=== PATIENT | female | born 2000 | race Two or more races ===

== ENCOUNTER 2025-02-14 12:43 | Outpatient (REF) | payer BC, SELFPAY ==
--- OUTSIDE RECORDS SUMMARY | 2023-11-28 06:00 | XMS_ITS ---
Author Organization [facility] vices Address [address] [place], [place] [id number] Care Team Providers Care Teamsite Developer Name Role Phone GironNell hernández Unavailable [phone] REASON FOR VISIT Depression & Referral Social History Sex Assigned At : Social History Observation Description Sex Assigned At Female Encounters Encounter Location Date Provider Diagnosis Main [address] [place], [place] [id number] 11/28/2023 Nell Giron Plan Of Treatment No Information Progress Notes * Karlee AGUDELO DDOB:[birth year] (25 yo F)Acc No.[id number]:11/28/2023 Medical Note Patient: Karlee ANN Provider: Nila Giron MD :2000 A ge:23 Y S ex:Female Date:11/28/2023 Address:[facility] [address] Subjective: * Chief Complaints: * 1 . Depression & Referral. * Medical History: Objective: * Vitals: Assessment: Plan: * Treatment: * Billing Information: * Visit Code: * Procedure Codes: * Electronic signature of Daniel Giron MD on 02/14/2025 at 08:16 AM EDT Sign off status: Pending * Provider: Nila Giron MD Date: 0 11/28/2023 Generated for Printi ng/Fapatti/eTransmitting on: 0 02/14/2025 08:16 AM EDT
--- OUTSIDE RECORDS SUMMARY | 2025-02-14 08:30 | XMS_ITS | Encounter Summary ---
Author Organization [facility] Address [address] [place] [address] Care Team Providers Care Engineering Specialist Technician Name Role Phone Unavailable Primary Care Provider Unavailabl e Reason for Visit * Reason Comments Gynecologic Exam Encounter Details Date Type Department Care Team (Late st Contact Info) Description 02/14/2025 8:30 AM EDT Office Visit [facility] [address] [place] [address] Dez Shea DO [address] [place], [place] [id number] Well woman exam with routine gynecological exam; Hx of endometriosis; Hx of removal of cyst; PCOS (polycystic ovarian syndrome) Social History Tobacco Use Types Packs/Day Years Used Date Smoking Tobacco: Never Assessed Comments No Sex and Gender Information Value Date Recorded Sex Assigned at Not on file Legal Sex Female 7:03 PM EDT Gender Identity Not on file Sexual Orientation Not on file documented as of this encounter Last Filed Vital Signs Vital Sign Reading Time Taken Comments Blood Pressure 118/74 02/14/2025 8:31 AM EDT Pulse - - Temperature - - Respiratory Rate - - Oxygen Saturation - - Inhaled Oxygen Concentration - - Weight 80.7 kg (178 lb) 02/14/2025 8:31 AM EDT Height 160 cm (5' 3 ) 02/14/2025 8:31 AM EDT Body Mass Index 31.53 02/14/2025 8:31 AM EDT documented in this encounter Progress Notes * Thais Corrales MA - 02/14/2025 8:30 AM EDT Reason for Appointment: Patient ID: Karlee Agudelo is a 25 y.o. female who presents for Gynecologic Exam Patient presents today for Annual Exam. MEDICATIONS No current outpatient medications ALLERGIES No Known Allergies PROBLEMS Active Ambulatory Problems Diagnosis Date Noted No Active Ambulatory Problems Resolved Ambulatory Problems Diagnosis Date Noted No Resolved Ambulatory Problems No Additional Past Medical History HISTORY PAST MEDICAL HISTORY SOCIAL HISTORY No past medical history on file. Social History Tobacco Use Smoking status: Not on file Smokeless tobacco: Not on file Substance Use Topics Alcohol use: Not on file Drug use: Not on file FAMILY HISTORY No family history on file. SURGICAL HISTORY Past Surgical History: Procedure Laterality Date CYST REMOVAL 2016 REVIEW OF SYSTEMS Review of Systems: Review of Systems Constitutional: Negative. HENT: Negative. Eyes: Negative. Respiratory: Negative. Cardiovascular: Negative. Gastrointestinal: Negative. Genitourinary: Negative. Musculoskeletal: Negative. Skin: Negative. Neurological: Negative. All other systems reviewed and are negative. Hematological: Negative. Endocrine: Negative. Allergic/Immunologic: Negative. OBJECTIVE Objective: Physical Exam Constitutional: Appearance: Normal appearance. She is well-developed. Genitourinary: Vulva normal. Right Adnexa: not tender and no mass present. Left Adnexa: not tender and no mass present. No cervical discharge. Breasts: Breasts are soft. Right: Normal. Left: Normal. HENT: Head: Normocephalic. Nose: Nose normal. Mouth/Throat: Mouth: Mucous membranes are moist. Cardiovascular: Rate and Rhythm: Normal rate and regular rhythm. Pulmonary: Effort: Pulmonary effort is normal. Breath sounds: Normal breath sounds. Abdominal: General: Bowel sounds are normal. There is no distension. Palpations: Abdomen is soft. Tenderness: There is no abdominal tenderness. There is no guarding or rebound. Musculoskeletal: General: No swelling. Normal range of motion. Cervical back: Normal range of motion. Right lower leg: No edema. Left lower leg: No edema. Neurological: General: No focal deficit present. Mental Status: She is alert and oriented to person, place, and time. Skin: General: Skin is warm and dry. Psychiatric: Mood and Affect: Mood normal. Behavior: Behavior normal. Vitals and nursing note reviewed. Exam conducted with a keyboarding clerk present. Vitals: Estimated body mass index is 31.53 kg/m?? as calculated from the following: Height as of this encounter: 5' 3 . Weight as of this encounter: 178 lb. BP: 118/74 Patient's last menstrual period was 01/28/2025 (exact date). ASSESSMENT & PLAN ICD-10-CM 1. Well woman exam with routine gynecological exam Z01.419 Pap Smear 2. Hx of endometriosis Z87.42 3. Hx of removal of cyst Z98.890 4. PCOS (polycystic ovarian syndrome) E28.2 hCG, quantitative, TSH T4, free CBC and differential Follicle stimulating hormone Luteinizing hormone Hemoglobin A1c DHEA-sulfate DHEA US Pelvis w/ TV DHEA Annual Exam: Patient presents today for an annual exam. Patient states she is doing well and has no complaints. Pap was obtained without difficulty. Patient discussed her menstrual cycles are over 8 days w/heavy bleeding. PCOS labs and US was given to patient to obtain and schedule a f/up visit. Pt is also desiring to discuss fertility and has been on Femara in the past w/her last OB doctor. Jen Steward gave patient information about fertility medication and was advised to set up a fertility visit to see Dr. Shea. PVU. Labs for pcos and ultrasound ordered and follow up with Monse discussed Orders Placed This Encounter Procedures US Pelvis w/ TV hCG, quantitative, TSH T4, free CBC and differential Follicle stimulating hormone Luteinizing hormone Hemoglobin A1c DHEA-sulfate DHEA Follow Up: Patient is to return in one year for annual unless needed otherwise. Documented by Thais Corrales MA on behalf of: Dez Shea DO documented in this encounter Plan of Treatment Upcoming Encounters Date Type Department Care Team (Late st Contact Info) Description 02/25/2025 1:00 PM EDT Ancillary Procedure [facility] [address] [place] [address] 03/12/2025 9:50 AM EDT [place] [address] Dez Shea, DO [address] [place] [address] [place] [address] Scheduled Orders Name Type Priority Associated Diagnoses Orde r Schedule Pap Smear Pathology and Cytology Routine Well woman exam with routine gynecological exam Ordered: 02/14/2025 hCG, quantitative, Lab Routine PCOS (polycystic ovarian syndrome) Ordered: 02/14/2025 TSH Lab Routine PCOS (polycystic ovarian syndrome) Ordered: 02/14/2025 T4, free Lab Routine PCOS (polycystic ovarian syndrome) Ordered: 02/14/2025 CBC and differential Lab Routine PCOS (polycystic ovarian syndrome) Ordered: 02/14/2025 Follicle stimulating hormone Lab Routine PCOS (polycystic ovarian syndrome) Ordered: 02/14/2025 Luteinizing hormone Lab Routine PCOS (polycystic ovarian syndrome) Ordered: 02/14/2025 Hemoglobin A1c Lab Routine PCOS (polycystic ovarian syndrome) Ordered: 02/14/2025 DHEA-sulfate Lab Routine PCOS (polycystic ovarian syndrome) Ordered: 02/14/2025 DHEA Lab Routine PCOS (polycystic ovarian syndrome) Expected: 02/14/2025 (Approximate), Expires: 02/14/2026 US Pelvis w/ TV Imaging Routine PCOS (polycystic ovarian syndrome) Expected: 02/14/2025 (Approximate), Expires: 02/14/2026 documented as of this encounter Visit Diagnoses Diagnosis Well woman exam with routine gynecological exam Routine gynecological examination Hx of endometriosis Hx of removal of cyst PCOS (polycystic ovarian syndrome) Polycystic ovaries documented in this encounter
--- OUTSIDE RECORDS SUMMARY | 2025-02-14 12:49 | XMS_ITS | Encounter Summary ---
Author Organization [facility] Address [address] [place] [address] Care Team Providers Care Orderlies Teacher Name Role Phone Unavailable Primary Care Provider Unavailabl e Encounter Details Date Type Department Care Team (Late Contact Info) Description 02/14/2025 Telephone [facility] [address] [place] [address] Thais Corrales MA [address] [place] [address] Social History Tobacco Use Types Packs/Day Years Used Date Smoking Tobacco: Never Assessed Comments No Sex and Gender Information Value Date Recorded Sex Assigned at Not on file Legal Sex Female 7:03 PM EDT Gender Identity Not on file Sexual Orientation Not on file documented as of this encounter Miscellaneous Notes * Telephone Encounter - Thais Corrales MA - 02/14/2025 10:28 AM EDT Per elin chu to send in metformin for pcos documented in this encounter Plan of Treatment Upcoming Encounters Date Type Department Care Team (Late Contact Info) Description 02/25/2025 1:00 PM EDT Ancillary Procedure [facility] [address] [place] [address] 03/12/2025 9:50 AM EDT Office Visit [facility] [address] [facility] [place] [address] Dez Shea DO [address] [facility] [place] [address] documented as of this encounter Visit Diagnoses Diagnosis PCOS (polycystic ovarian syndrome) Polycystic ovaries documented in this encounter
--- OUTSIDE RECORDS SUMMARY | 2025-02-14 12:49 | XMS_ITS | Clinical Summary ---
Author Organization [facility] Address [address] [place] [address] Care Team Providers Care Gas Treater Name Role Phone Unavailable Primary Care Provider Unavailabl e Allergies No known active allergies Medications metFORMIN XR (Glucophage-XR) 500 MG 24 hr tabletIndication s:PCOS (polycystic ovarian syndrome) Take 1 tablet (500 mg) by mouth in the evening. Take with meals Do not crush, chew, or split. 90 tablet 2 02/14/2025 Active Encounters Date Type Department Care Team Description 02/14/2025 8:30 AM EDT Office Visit [facility] [address] [place] [address] [place] [address] Dez Shea DO Well woman exam with routine gynecological exam; Hx of endometriosis; Hx of removal of cyst; PCOS (polycystic ovarian syndrome) 02/14/2025 Telephone [facility] [address] [place] [address] [place] [address] Thais Corrales MA 02/14/2025 Bamboo flowsheet [facility] [address] [place] [address] [place] [address] Dez Shea DO 02/07/2025 Travel from Last 3 Months Social History Tobacco Use Types Packs/Day Years Used Date Smoking Tobacco: Never Assessed Comments No Sex and Gender Information Value Date Recorded Sex Assigned at Not on file Legal Sex Female 7:03 PM EDT Gender Identity Not on file Sexual Orientation Not on file Last Filed Vital Signs Vital Sign Reading Time Taken Comments Blood Pressure 118/74 02/14/2025 8:31 AM EDT Pulse - - Temperature - - Respiratory Rate - - Oxygen Saturation - - Inhaled Oxygen Concentration - - Weight 80.7 kg (178 lb) 02/14/2025 8:31 AM EDT Height 160 cm (5' 3 ) 02/14/2025 8:31 AM EDT Body Mass Index 31.53 02/14/2025 8:31 AM EDT Plan of Treatment Upcoming Encounters Date Type Department Care Team (Late st Contact Info) Description 02/25/2025 1:00 PM EDT Ancillary Procedure [facility] [address] [place] [address] 03/12/2025 9:50 AM EDT Office Visit [facility] [address] [place] [address] Dez Shea DO [address] [place] [address] Insurance
--- OUTSIDE RECORDS SUMMARY | 2025-02-14 12:49 | XMS_ITS | Clinical Summary ---
Author Organization [facility] Address [id number] [address] [place] [address] Care Team Providers Care Board Runner Name Role Phone Services, [facility] Primary Care Provider Allergies No known active allergies Medications letrozole (FEMARA) 2.5 mg chemo tabletIndicatio ns:Anovulation Take 2 tablets by mouth daily Take on cycle days 3-7 5 tablet 02/06/2024 Active Active Problems No known active problems Social History Tobacco Use Types Packs/Day Years Used Date Smoking Tobacco: Every Day Vaping/E-cigarettes Smokeless Tobacco: Never Tobacco Cessation:Ready to Q uit: Not Asked; Counseling Given: Not Answered Alcohol Use Standard Drinks/Week Comments Yes 3 (1 standard drink = 0.6 oz pur e alcohol) once a week AUDIT-C Answer Date Recorded Q1: How often do you have a drink containing alc ohol? Never 09/22/2020 Average Number of Drinks Not on file 021 Frequency of Binge Drinking Not on file 09/08 Childcare Answer Date Recorded Childcare Unknown 12/20/2018 Employment Answer Date Recorded Employment Unknown 12/20/2018 Hunger Screening Answer Date Recorded Within the past 12 months we worried whether our food would run out before we got money to buy more. Never True 08/15/2023 Within the past 12 months th e food we bought just didn't last and we didn't have money to get more. Never True 08/15/2023 Purpose - Life Answer Date Recorded Purpose and direction in life Unknown Comments No Sex and Gender Information Value Date Recorded Sex Assigned at Female 07/26/2023 4:39 AM EST Legal Sex Female 12:01 PM EDT Gender Identity Female 07/26/2023 4:39 AM EST Sexual Orientation Straight 07/26/2023 4: 39 AM EST Last Filed Vital Signs Vital Sign Reading Time Taken Comments Blood Pressure 115/74 09/26/2023 10:46 AM EDT Pulse 77 08/15/2023 1:09 PM EST Temperature 36.7 C (98 F) 07/14/2022 6:44 PM EST Respiratory Rate 18 07/14/2022 6:44 PM EST Oxygen Saturation 100% 07/14/2022 6:44 PM EST Inhaled Oxygen Concentration - - Weight 90.9 kg (200 lb 6.4 oz) 08/15/2023 1:09 P M EST Height 160 cm (5' 2.99 ) 08/15/2023 1:09 PM EST Body Mass Index 35.51 08/15/2023 1:09 PM EST Plan of Treatment Health Maintenance Due Date Last Done Comments Tobacco Counseling 2000 Depression Screening 2010 COVID-19 Vaccine (3 2023-2 5 season) 2024 01/17/2021, 12/27/2020 Adult BMI Screening 08/15/2024 08/15/2023 Tobacco Screening 02/15/2025 02/16/2024 Influenza Vaccine 03/11/2025 07/25/2023, 07/20/2022 Pap Smear 09/25/2026 09/26/2023 DTaP,Tdap and Td Vaccines (8 - Td or Tdap) 12/03/2031 12/02/2021, 12/02/2010, 11/19/2002, Additional history exists Medical Devices Not on file Procedures Procedure Name Priority Date/Time Associated Diagnosis Comments PAP SMEAR Routine 09/26/2023 6:35 AM EDT Well woman exam with routine gynecological exam from Last 3 Months or Most Recently Relevant to Health Maintenance Results * Pap Smear (09/26/2023 6:35 AM EDT) 09/26/2023 6:35 AM EDT 09/26/2023 6:35 AM EDT Narrative COPATH - 10/11/2023 9:21 AM EDT [facility] [address] [place] [address] Gynecologic Cytology Consultation Patient Name:KARLEE AGUDELO:2000 (Age: 23)Gender:FTaken:4Reported:10/11/2023hysician(s):Kenya Vasquez M.D. ([phone])Copy To: Rec. #:[id number]: #[id number] Final Cytologic Interpretation ThinPrep Pap Test (Vaginal/Cervical): Satisfactory for evaluation. A transformation zone component is present. NEGATIVE FOR INTRAEPITHELIAL LESION OR MALIGNANCY. jja/10/11/2023 Interpretation performed at [facility], [address] [place] [address], License number: [id number]. Electronically Signed Out By AYAKA Eugene(ASCP) Date of Last Menstrual Period: 09/18/23 Other Clinical Conditions: Z01.419 Youth Services Specialist exam wo/abn findings Source of Specimen ThinPrep Pap Test (Vaginal/Cervical) Thin Prep Pap (SEMICONDUCTOR PROCESSING TECHNICIAN) Fee Code(s): G0145 Kenya Vasquez MD PATHOLOGY/CYTOLOGY ORDERABLES nal Result COPATH from Last 3 Months or Most Recently Relevant to Health Maintenance Insurance [employer] Care Teams Board Runner Relationship Specialty Start Date End Date Services, [facility] [address] [place], [place] PCP - General Family Medicine 04/25/18
--- OUTSIDE RECORDS SUMMARY | 2025-02-14 12:49 | XMS_ITS | Clinical Summary ---
Author Organization [facility] Address [address] [place], [place] [address] Care Team Providers Care Athletic Coach Name Role Phone Dez Shea DO Unavailable [phone] Allergies No known active allergies Medications docusate sodium (COLACE) 100 mg capsule Take 1 capsule by mouth twice daily. 30 capsule 02/13/2017 Active oxyCODONE-aceta minophen (PERCOCET) 5-325 mg tablet Take 2 tablets by mouth every 4 hours as needed. 30 tablet 02/13/2017 Active acetaminophen-c odeine (TYLENOL-COD #3) 300-30 mg per tablet Take 1 tablet by mouth every 6 hours as needed. FOR PAIN 0 01/17/2017 Active Active Problems Problem Noted Date Diagnosed Date Endometrioma of ovary 02/10/2017 Resolved Problems Problem Noted Date Diagnosed Date Resolved Date Pelvic mass 01/31/2017 02/13/2017 Overview (01/31/2017): Added automatically from request for surgery [id number] Family History Medical History Relation Comments no cancer in family Other Relation Status Comments Other Social History Tobacco Use Types Packs/Day Years Used Date Smoking Tobacco: Never Smokeless Tobacco: Never Alcohol Use Standard Drinks/Week Comments No 0 (1 standard drink = 0.6 oz pur e alcohol) Comments No Sex and Gender Information Value Date Recorded Sex Assigned at Not on file Legal Sex Female 10:21 AM EDT Gender Identity Not on file Sexual Orientation Not on file Last Filed Vital Signs Vital Sign Reading Time Taken Comments Blood Pressure 108/68 02/22/2017 2:09 PM EDT Pulse 78 02/22/2017 2:09 PM EDT Temperature 37.1 C (98.8 F) 02/22/2017 2:09 PM EDT Respiratory Rate 16 02/13/2017 8:18 AM EDT Oxygen Saturation 96% 02/13/2017 8:18 AM EDT Inhaled Oxygen Concentration - - Weight 68.9 kg (151 lb 12.8 oz) 02/22/2017 2:09 PM EDT Height 160 cm (5' 2.99 ) 02/22/2017 2:09 PM EDT Body Mass Index 26.9 02/22/2017 2:09 PM EDT Plan of Treatment Health Maintenance Due Date Last Done Comments Anxiety Screening 01/12/2016 Depression Screening 01/12/2016 HIV Screening 01/12/2016 Hepatitis C Screening 01/12/2016 DTaP,Tdap,Td Vaccine (1 - Tdap) 2017 Hepatitis B Vaccine (1 of 3 - 19+ 3-dose series) 01/11 Cervical Cancer Screening 2019 Influenza Vaccine (#1) 2025 Insurance BLUE CARD PPO OOS Member Subscriber Plan / Payer (Ef fective 2011-Present) Name:AgudeloKarlee Relation to Subscriber:Child Name:ZEYNEP AGUDELO Carson Date of :1977 (Home) Address: [address] [place], [place] [address] Payer ID:[id number] (NAIC) Type:PPO Address: [address] [employer] [facility] Care Teams Athletic Coach Relationship Specialty Start Date End Date Dez Shea DO Referring Obstetrics 01/19/17
--- OUTSIDE RECORDS SUMMARY | 2025-02-14 12:49 | XMS_ITS | Encounter Summary ---
Author Organization [facility] Address [id number] [address] [place] [address] Care Team Providers Care Hook Loader Name Role Phone Services, [facility] Primary Care Provider Reason for Visit * Reason Comments Med Change Request Encounter Details Date Type Department Care Team (Late Contact Info) Description 01/25/2024 Refill [facility] [address] [place] [address] Kenya Vasquez MD [address] [place] 02/23/2024 [place] [address] Social History Tobacco Use Types Packs/Day Years Used Date Smoking Tobacco: Every Day Vaping/E-cigarettes Smokeless Tobacco: Never Alcohol Use Standard Drinks/Week Comments Yes 3 [...] Orientation Straight 07/26/2023 4: 39 AM EST documented as of this encounter Miscellaneous Notes * Telephone Encounter - Kenya Vasquez MD - 01/25/2024 3:15 PM EDT duplicate documented in this encounter Plan of Treatment Not on file documented as of this encounter Visit Diagnoses Not on filedocumented in this encounter Care Teams Hook Loader Relationship Specialty Start Date End Date Services, [facility] [address] [place], [place] PCP - General Family Medicine 04/25/18 documented as of this encounter
--- OUTSIDE RECORDS SUMMARY | 2025-02-14 12:49 | XMS_ITS | Encounter Summary ---
Author Organization [facility] Address [address] [place] [address] Care Team Providers Care Ager Operator Name Role Phone Unavailable Primary Care Provider Unavailabl e Encounter Details Date Type Department Care Team (Latest Contact Info) Description 02/07/2025 Travel Social History Tobacco Use Types Packs/Day Years Used Date Smoking Tobacco: Never Assessed Comments Unknown Sex and Gender Information Value Date Recorded Sex Assigned at Not on file Legal Sex Female 7:03 PM EDT Gender Identity Not on file Sexual Orientation Not on file documented as of this encounter Plan of Treatment Upcoming Encounters Date Type Department Care Team (Late st Contact Info) Description 02/25/2025 1:00 PM EDT Ancillary Procedure NOMChristine SAUNDERS [address] [place] [address] 03/12/2025 9:50 AM EDT Office Visit LUIS SAUNDERS [address] [place] [address] Dez Shea DO [address], [facility]11 documented as of this encounter Visit Diagnoses Not on filedocumented in this encounter
--- OUTSIDE RECORDS SUMMARY | 2025-02-14 12:49 | XMS_ITS | Encounter Summary ---
Author Organization [facility] Address [address] [place] [address] Care Team Providers Care Consulting Actuary Name Role Phone Unavailable Primary Care Provider Unavailabl e Encounter Details Date Type Department Care Team (Late Contact Info) Description 02/14/2025 Bamboo flowsheet NOMChristine SAUNDERS [address] [place] [address] Dez Shea, [address], [place] [address] Social History Tobacco Use Types Packs/Day Years [...] PM EDT Ancillary Procedure NOMChristine SAUNDERS [address] [place] [address] 03/12/2025 9:50 AM EDT Office Visit NOMChristine SAUNDERS [address] [place] [address] Dez Shea, DO [address] [place] [address] documented as of this encounter Visit Diagnoses Not on filedocumented in this encounter
[2025-02-16 23:07] LABS: Age Gdln ACOG Testing Note (.); IGP, rfx Aptima HPV ASCU Note (.)
== END 2025-02-14 12:44 | disposition home or self-care (01) ==
LOC: LAB 12:43
PROVIDERS: Visit Provider Obstetrics & Gynecology
DX: Z01.419 Encounter for gynecological examination (general) (routine) without abnormal findings (principal)
CPT/HCPCS: 88175

== ENCOUNTER 2025-02-21 14:06 | Outpatient (OUT) | payer BC, SELFPAY ==
--- OUTSIDE RECORDS SUMMARY | 2023-11-28 06:00 | XMS_ITS ---
Author Organization [facility] vices Address [address] [place], [place] [id number] Care Team Providers Care Gore Cutter Name Role Phone Giron, Nell Unavailable [phone] REASON FOR VISIT Depression & Referral Social History Sex Assigned At : Social History Observation Description Sex Assigned At Female Encounters Encounter Location Date Provider Diagnosis Main [address] [place], [place] [id number] 11/28/2023 Nell Giron Plan Of Treatment No Information Progress Notes * Karlee AGUDELO DDOB:[birth year] (25 yo F)Acc No.[id number]:11/28/2023 Medical Note Patient: Karlee ANN Provider: Nila Giron MD :2000 A ge:23 Y S ex:Female Date:11/28/2023 Address:[facility] [address], [id number] Subjective: * Chief Complaints: * 1 . Depression & Referral. * Medical History: Objective: * Vitals: Assessment: Plan: * Treatment: * Billing Information: * Visit Code: * Procedure Codes: * Electronic signature of Daniel Giron MD on 02/21/2025 at 02:08 PM EDT Sign off status: Pending * Provider: Nila Giron MD Date: 11/28/2023 Generated for Printi coral/Fapatti/eTransmitting on: 02/21/2025 02:08 PM EDT
--- OUTSIDE RECORDS SUMMARY | 2025-02-14 08:30 | XMS_ITS | Encounter Summary ---
Author Organization [facility] Address [address] [place] [address] Care Team Providers Care Plumbing Assembler Installer Name Role Phone Unavailable Primary Care Provider Unavailabl e Reason for Visit * Reason Comments Gynecologic Exam Encounter Details Date Type Department Care Team (Late st Contact Info) Description 02/14/2025 8:30 AM EDT Office Visit [facility] [address] [facility] [place] [phone] Dez Shea DO [address] [place], [place] [phone] Well woman exam with routine gynecological exam; [...] nursing note reviewed. Exam conducted with a master in chancery present. Vitals: Estimated body mass index is [...] Procedure [facility] [address] [place] [address] 03/12/2025 9:50 AM EDT [place] [address] Dez Shea, DO [address] [place] [address] [place] [address] Scheduled Orders Name Type Priority Associated Diagnoses [...]
--- OUTSIDE RECORDS SUMMARY | 2025-02-21 14:07 | XMS_ITS | Encounter Summary ---
Author Organization [facility] Address [address] [place] [address] Care Team Providers Care Senior Maintenance Machinist Name Role Phone Unavailable Primary Care Provider Unavailabl e Encounter Details Date Type Department Care Team (Late Contact Info) Description 02/14/2025 Bamboo flowsheet NOMChristine SAUNDERS [address] [place] [address] Dez Shea, [address], [place] [address] Social History Tobacco Use Types Packs/Day Years [...] Ancillary Procedure NOMChristine SAUNDERS [address] [place] [address] 03/12/2025 9:50 AM EDT Office Visit NOMChristine SAUNDERS [address] [place] [address] Dez Shea, DO [address] [place] [address] documented as of this encounter Visit Diagnoses Not on filedocumented in this encounter
--- OUTSIDE RECORDS SUMMARY | 2025-02-21 14:07 | XMS_ITS | Clinical Summary ---
Author Organization [facility] Address [address] [place], [place] [address] Care Team Providers Care Crew Supervisor Name Role Phone Dez Shea DO Unavailable [phone] Allergies No known active allergies Medications [...] (01/31/2017): Added automatically from request for surgery [id number] Family History Medical History Relation Comments no [...] AGUDELO Carson Date of :1979 (Home) Address: [address] [place], [place] [id number] Payer ID:[id number] (NAIC) Type:PPO Address: [address] [employer] MEDICAID [facility] Care Teams Crew Supervisor Relationship Specialty Start Date End Date Dez Shea DO Referring Obstetrics 01/19/17
--- OUTSIDE RECORDS SUMMARY | 2025-02-21 14:07 | XMS_ITS | Encounter Summary ---
Author Organization [facility] Address [address] [place] [address] Care Team Providers Care Show Jumping Instructor Name Role Phone Unavailable Primary Care Provider Unavailabl e Encounter Details Date Type Department Care Team (Late Contact Info) Description 02/14/2025 Telephone [facility] Marcus SAUNDERS [address] [place] [address] Thais Corrales MA [address] [place] [address] Social History Tobacco Use Types Packs/Day Years [...] EDT Ancillary Procedure NOM[facility] Marcus SAUNDERS [address] [place] [address] 03/12/2025 9:50 AM EDT Office Visit LUIS SAUNDERS [address] [facility] [place] [address] Dez Shea DO [address] [facility] [place] [address] documented as of this encounter Visit Diagnoses Diagnosis PCOS (polycystic ovarian syndrome) Polycystic ovaries documented in this encounter
--- OUTSIDE RECORDS SUMMARY | 2025-02-21 14:07 | XMS_ITS | Clinical Summary ---
Author Organization [facility] Address [address] [facility] [place] [address] Care Team Providers Care Vest Presser Name Role Phone Unavailable Primary Care Provider [...] AM EDT Office Visit [facility] Marcus SAUNDERS [address] [place] [address] Dez Shea DO Well woman exam with routine gynecological exam; Hx of endometriosis; Hx of removal of cyst; PCOS (polycystic ovarian syndrome) 02/14/2025 Clinisync Result Encounter NOMS External Department Unsolicited Dez Shea DO 02/14/2025 Telephone [facility] Marcus SAUNDERS [address] [place] [address] Thais Corrales MA 02/14/2025 Bamboo flowsheet NOMS Macrus SAUNDERS [address] [place] [address] Dez Shea DO 02/07/2025 Travel from [...] PM EDT Ancillary Procedure [facility]OMS Marcus SAUNDERS [address] [place], [place] [address] [address] 03/12/2025 9:50 AM EDT Office Visit NOMS Marcus SAUNDERS [facility] [place] [address] Dez Shea DO [address] [place], [place] [address] [place] [address] Procedures Procedure Name Priority Date/Time Associated Diagnosis Comments IGP,APTIMA HPV,AGE GDLN Routine 02/14/2025 8:24 AM EDT from Last 3 Months Results * IGP,APTIMA HPV,AGE GDLN (02/14/2025 8:24 AM EDT) AGE GDLN ACOG TESTING Note . [facility] Comment: TESTS RESULT FLAG UNITS REF RANGE LAB Clinician Provided Cytology Information Source.............Cervix;Endocervix No. of containers..01 ThinPrep Vial Age Sendy Richards... FLAG LEGEND: L-Low Normal,H-High Normal,LL-Alert Low,HH-Alert High <-Panic Low,>-Panic High,A-Abnormal,AA-Critical Abnormal Performed at: 01 =G [facility] [address] Antoinette Gunter MD, IGP, RFX APTIMA HPV ASCU Note . [facility] Comment: TESTS RESULT FLAG UNITS REF RANGE LAB DIAGNOSIS: 02 NEGATIVE FOR INTRAEPITHELIAL LESION OR MALIGNANCY. Specimen adequacy: 02 Satisfactory for evaluation. No endocervical component is identified. Performed by: 02 Alan Chapin Event Marketing Assistant ([facility]) . 02 Note: Note 02 The Pap smear is a screening test designed to aid in the detection of premalignant and malignant conditions of the uterine cervix. It is not a diagnostic procedure and should not be used as the sole means of detecting cervical cancer. Both false-positive and false-negative reports do occur. Test Methodology: Note 02 This liquid based ThinPrep(R) pap test was screened with the use of an image guided system. . 02 The HPV DNA reflex criteria were not met with this specimen result therefore, no HPV testing was performed. FLAG LEGEND: L-Low Normal,H-High Normal,LL-Alert Low,HH-Alert High <-Panic Low,>-Panic High,A-Abnormal,AA-Critical Abnormal Performed at: [address] [address] Antoinette Gunter MD, Performed at: = - [facility] [id number] Hatchery Man: Antoinette Gunter MD, Phone: [phone] Performed at: [facility] [address] [id number] Hatchery Man: Antoinette Gunter MD, Phone: [phone] 02/14/2025 8:24 AM EDT 02/14/2025 12:49 PM EDT Narrative CLINISYNC - 02/16/2025 11:07 PM EDT BRUSH-SPATULA CERVIX ENDOCERVIX us Dez Shea DO LAB BLOOD ORDERABLES Final Resul t [facility] TB from Last 3 Months Insurance
--- OUTSIDE RECORDS SUMMARY | 2025-02-21 14:08 | XMS_ITS | Encounter Summary ---
Author Organization [facility] Address [address] [place] [address] Care Team Providers Care Marketing Account Manager Name Role Phone Unavailable Primary Care Provider Unavailabl e Encounter Details Date Type Department Care Team (Late Contact Info) Description 02/14/2025 Clinisync Result Encounter NOMS External Department Unsolicited Dez Shea, DO [address], [facility]11 Social History Tobacco Use Types Packs/Day Years [...] EDT Ancillary Procedure NOMS Marcus SAUNDERS [address] [place] [address] 03/12/2025 9:50 AM EDT Office Visit NOMS aMrcus SAUNDERS [address] [place] [address] Dez Shea, DO [address] [place], [place] [phone] documented as of this encounter Procedures Procedure Name Priority Date/Time Associated Diagnosis Comments IGP,APTIMA HPV,AGE GDLN Routine 02/14/2025 8:24 AM EDT documented in this encounter Results * IGP,APTIMA HPV,AGE GDLN (02/14/2025 8:24 AM EDT) AGE GDLN ACOG TESTING Note . [facility] Comment: TESTS RESULT FLAG UNITS REF RANGE LAB Clinician Provided Cytology Information Source.............Cervix;Endocervix No. of containers..01 ThinPrep Vial Age Algo ACOG Susie... FLAG LEGEND: L-Low Normal,H-High Normal,LL-Alert Low,HH-Alert High <-Panic Low,>-Panic High,A-Abnormal,AA-Critical Abnormal Performed at: 01 [facility] [address] [place] [address] Antoinette Gunter MD, IGP, RFX APTIMA HPV ASCU Note . [facility] Comment: TESTS RESULT FLAG UNITS REF RANGE LAB DIAGNOSIS: 02 NEGATIVE FOR INTRAEPITHELIAL LESION OR MALIGNANCY. Specimen adequacy: 02 Satisfactory for evaluation. No endocervical component is identified. Performed by: 02 Alan Chapin Agronomy Professor ([facility]) . 02 Note: Note 02 The [...] <-Panic Low,>-Panic High,A-Abnormal,AA-Critical Abnormal Performed at: [address] [address] Antoinette Gunter MD, Performed at: =G - [facility] [address] [id number] Quality Control Checker: Antoinette Gunter MD, Phone: [phone] Performed at: [facility] [id number] Quality Control Checker: Antoinette Gunter MD, Phone: [phone] 02/14/2025 8:24 AM EDT 02/14/2025 12:49 PM EDT Narrative CLINISYNC - 02/16/2025 11:07 PM EDT BRUSH-SPATULA CERVIX ENDOCERVIX us Dez Monse DO LAB BLOOD ORDERABLES Final Resul t [facility] documented in this encounter Visit Diagnoses Not on filedocumented in this encounter
--- OUTSIDE RECORDS SUMMARY | 2025-02-21 14:08 | XMS_ITS | Encounter Summary ---
Author Organization [facility] Address [address] [place] [address] Care Team Providers Care Aquatics Director Name Role Phone Unavailable Primary Care Provider [...] PM EDT Ancillary Procedure NOMChristine SAUNDERS [address] [place] [address] 03/12/2025 9:50 AM EDT Office Visit LUIS SAUNDERS [address] [place] [address] Dez Shea DO [address], [facility]11 documented as of this encounter Visit Diagnoses Not on filedocumented in this encounter
--- OUTSIDE RECORDS SUMMARY | 2025-02-21 14:09 | XMS_ITS | Clinical Summary ---
Author Organization [facility] Address [facility]-[id number] [address] [place] [address] Care Team Providers Care Lay Out Helper Name Role Phone Services, [facility] Primary Care Provider Allergies No known active [...] Health Maintenance Due Date Last Done Comments Depression Screening 2010 COVID-19 Vaccine (2023-2 5 season) 2024 01/17/2021, 12/27/2020 Adult BMI [...] Narrative COPATH - 10/11/2023 9:21 AM EDT [facility] [address] [place] [address] Gynecologic Cytology Consultation Patient Name:KARLEE LUIS:2000 (Age: 23)Gender:FTaken:4Reported:10/11/2023hysician(s):Kenya Vasquez M.D. ([phone])Copy To: Rec. #:[id number]: #[id number] Final Cytologic Interpretation ThinPrep Pap Test (Vaginal/Cervical): Satisfactory for evaluation. A transformation zone component is present. NEGATIVE FOR INTRAEPITHELIAL LESION OR MALIGNANCY. jja/10/11/2023 Interpretation performed at [facility], [address] [place] [address], License number: [id number]. Electronically Signed Out By AYAKA Eugene(ASCP) Date of Last Menstrual Period: 09/18/23 Other Clinical Conditions: Z01.419 Biodiesel Plant Manager exam wo/abn findings Source of Specimen ThinPrep Pap Test (Vaginal/Cervical) Thin Prep Pap ([employer]) Fee Code(s): G0145 Kenya Vasquez MD PATHOLOGY/CYTOLOGY ORDERABLES Fi nal Result COPATH from Last 3 Months or Most Recently Relevant to Health Maintenance Insurance [employer] Care Teams Lay Out Helper Relationship Specialty Start Date End Date [facility], [facility] [address] [place], [place] PCP - General Family Medicine 04/25/18
--- OUTSIDE RECORDS SUMMARY | 2025-02-21 14:09 | XMS_ITS | Encounter Summary ---
Author Organization [facility] Address [facility]-[id number] [address] [place] [address] Care Team Providers Care Pest Management Supervisor Name Role Phone Services, [facility] Primary Care Provider Reason for Visit * Reason Comments Med Change Request Encounter Details Date Type Department Care Team (Late Contact Info) Description 01/25/2024 Refill [facility] Ob[facility]necology [address] [place] [address] Kenya Vasquez MD [address] [place] 02/23/2024 [place] [address] Social History Tobacco Use Types Packs/Day Years [...] on filedocumented in this encounter Care Teams Pest Management Supervisor Relationship Specialty Start Date End Date Services, [facility] [address] [facility] [place] [place] PCP - General Family Medicine 04/25/18 documented as of this encounter
[2025-02-21 14:27] LABS: Hematocrit 32.6 % (36.0-48.0); Hemoglobin 12.1 g/dL (12.0-16.0); Immature Granulocytes Abs Auto 0.01 10^3/uL (0.00-0.03); Immature Granulocytes Pct Auto 0.1 % (0.0-0.5); Lymphocytes Absolute Auto 1.5 10^3/uL (1.2-3.8); Mean Corpuscular HGB Conc 37.1 g/dL (29.9-35.2); Mean Corpuscular Hemoglobin 29.8 pg (26.7-34.0); Mean Corpuscular Volume 80.3 fL (81.0-99.0); Platelet Count 203 10^3/uL (150-450); Red Blood Count 4.06 10^6/uL (4.20-5.40); White Blood Count 7.4 10^3/uL (4.0-11.0)
[2025-02-21 14:48] LABS: Thyroid Stimulating Hormone 1.954 uIU/mL (0.358-3.740)
[2025-02-22 04:07] LABS: FSH 6.8 mIU/mL (.)
== END 2025-02-21 14:07 | disposition home or self-care (01) ==
PROVIDERS: Visit Provider Obstetrics & Gynecology
DX: E28.2 Polycystic ovarian syndrome (principal)
CPT/HCPCS: 36415; 82626; 82627; 83001; 83002; 83036; 84439; 84443; 84702; 85025

== ENCOUNTER 2025-04-02 07:57 | Outpatient (OUT) | payer BC, SELFPAY ==
--- OUTSIDE RECORDS SUMMARY | 2023-11-28 06:00 | XMS_ITS ---
Author Organization [facility] vices Address [address] [place], [place] [address] Care Team Providers Care Clinical Courier Name Role Phone Giron, Nell Unavailable [phone] REASON FOR VISIT Depression & Referral Social History Sex Assigned At : Social History Observation Description Sex Assigned At Female Encounters Encounter Location Date Provider Diagnosis Main [address] [place], [place] [id number] 11/28/2023 Nell Giron Plan Of Treatment No Information Progress Notes * Karlee AGUDELO DDOB:[birth year] (25 yo F)Acc No.[id number]:11/28/2023 Medical Note Patient: Karlee ANN Provider: Nila Giron MD :2000 A ge:23 Y S ex:Female Date:11/28/2023 Address:[facility] [address], [id number] Subjective: * Chief Complaints: * 1 . Depression & Referral. * Medical History: Objective: * Vitals: Assessment: Plan: * Treatment: * Billing Information: * Visit Code: * Procedure Codes: * Electronic signature of Daniel Giron MD on 04/02/2025 at 08:00 AM EDT Sign off status: Pending * Provider: Nila Giron MD Date: 0 11/28/2023 Generated for Printi ng/Fapatti/eTransmitting on: 0 04/02/2025 08:00 AM EDT
--- OUTSIDE RECORDS SUMMARY | 2025-04-02 08:01 | XMS_ITS | Clinical Summary ---
Author Organization [facility] Address [address] [place] [address] Care Team Providers Care Cable Ferry Operator Name Role Phone Unavailable Primary Care Provider Unavailabl e Allergies No known active allergies Medications metFORMIN XR (Glucophage-XR) 500 MG 24 hr tabletIndication s:PCOS (polycystic ovarian syndrome) Take 1 tablet (500 mg) by mouth in the evening. Take with meals Do not crush, chew, or split. 90 tablet 2 02/14/2025 Active Encounters Date Type Department Care Team Description 03/12/2025 [place] [address] Mariana Kyle MA 03/06/2025 2:00 PM EDT [place] [address] PCOS (polycystic ovarian syndrome) 02/26/2025 [place] [address] Thasi Corrales MA 02/21/2025 Clinisync Result Encounter NOMS External Department Unsolicited Dez Shea DO 02/14/2025 8:30 AM EDT [place] [address] Dez Shea DO Well woman exam with routine gynecological exam; Hx of endometriosis; Hx of removal of cyst; PCOS (polycystic ovarian syndrome) 02/14/2025 Clinisync Result Encounter NOMS External Department Unsolicited Dez Shea DO 02/14/2025 Telephone [facility] [address] [facility] [place] [phone] Thais Corrales MA 02/14/2025 Bamboo flowsheet [facility] [address] [place] [phone] Dez Shea DO 02/07/2025 Travel from Last [...] Care Team (Late st Contact Info) Description 04/23/2025 11:10 AM EDT Office Visit [facility] [address] [place] [phone] Dez Shea DO [address] [facility] [place] [address] Procedures Procedure Name Priority Date/Time Associated Diagnosis Comments US PELVIC COMPLETE W/ TV Routine 025 2:37 PM EDT PCOS (polycystic ovarian syndrome) ALL DEHYDROEPIANDROSTERONE Routine 02/21 2:15 PM EDT ALL FOLLICLE STIMULATING HORMONE Routine 02/21/2025 2:15 PM EDT ALL LUTEINIZING HORMONE Routine 02/22/20 2:15 PM EDT ALL DHEA SULFATE Routine 02/21/2025 2:15 PM EDT ALL THYROXINE (T4) FREE Routine 02/22/20 2:15 PM EDT TBH PREG QUANT HCG Routine 02/21/2025 2: 15 PM EDT ALL THYROID STIM HORMONE Routine 2:15 PM EDT MLR HEMOGLOBIN A1C Routine 02/21/2025 2: 15 PM EDT ALL CBC WITH AUTO DIFF Routine 2:15 PM EDT IGP,APTIMA HPV,AGE GDLN Routine 02/15/20 8:24 AM EDT PAP SMEAR Routine 02/14/2025 12:00 AM EDT from Last 3 Months Results * US Pelvis w/ TV (03/06/2025 2:37 PM EDT) Anatomical Region Laterality Modality Pelvis Ultrasound 03/07/2025 2:12 PM EDT Impressions 03/07/2025 2:27 PM EDT Bilateral ovarian simple and complex cysts, likely benign etiology. If this is not been evaluated, however, pelvic MRI may be of assistance. TRANSCRIBED BY: ELECTRONICALLY SIGNED BY: MD Grace Hutson 03/07/2025 2:27 PM EDT FINDINGS: Uterus 10.1 x 4.0 x 4.7 cm Endometrium 8 mm Right ovary 7.5 x 5.4 x 6.7 (volume 142.5 cc) Left ovary 6.0 x 3.8 x 3.9 (volume 46.2 cc) Mild anteversion/anteflexion. Increased uterine size, diffuse heterogeneous echotexture throughout the myometrium. No focal mass. Normal endometrium. Increased bilateral ovarian size with multiple simple and complex cysts, largest aggregate on the right 5.0 x 4.9 x 3.2 cm, complex structure on the left 4.2 x 3.2 x 3.1 cm. No pelvic fluid. No increase in vascularity or shadowing. Procedure Note Fredis Krishnan MD - 03/07/2025 FINDINGS: Uterus 10.1 x 4.0 x 4.7 cm Endometrium 8 mm Right ovary 7.5 x 5.4 x 6.7 (volume 142.5 cc) Left ovary 6.0 x 3.8 x 3.9 (volume 46.2 cc) Mild anteversion/anteflexion. Increased uterine size, diffuseheterogeneous echotexture throughout the myometrium. No focal mass. Normal endometrium. Increased bilateral ovarian size with multiple simpleand complex cysts, largest aggregate on the right 5.0 x 4.9 x 3.2 cm,complex structure on the left 4.2 x 3.2 x 3.1 cm. No pelvic fluid. Noincrease in vascularity or shadowing. IMPRESSION: Bilateral ovarian simple and complex cysts, likely benign etiology. Ifthis is not been evaluated, however, pelvic MRI may be of assistance. TRANSCRIBED BY: ELECTRONICALLY SIGNED BY: Fredis Krishnan MD us Dez Monse DO [facility] US PROCEDURES Final Result * TBH PREG QUANT HCG (02/21/2025 2:15 PM EDT) HCG QUANTITATIVE <1 mIU/mL TBH Comment: 5-50 0.2-1 WEEK 50-500 1-2 WEEKS 100-5,000 2-3 WEEKS 500-10,000 3-4 WEEKS 1,000-50,000 4-5 WEEKS 10,000-100,000 5-6 WEEKS 15,000-200,000 6-8 WEEKS 10,000-100,000 2-3 MONTHS 02/21/2025 2:15 PM EDT 02/21/2025 2:18 PM EDT Narrative CLINISYNC - 02/21/2025 2:51 PM EDT Dez Monse DO CLINISYNC Final Result Performing Organization Address [facility] Co de Phone Number [facility] * MLR HEMOGLOBIN A1C (02/21/2025 2:15 PM EDT) GLYCOHEMOGLOBIN A1C 4.9 4.5 - 6.2 % TB Comment: ADA RECOMMENDED LIMIT 4.0 - 6.0 ADA THERAPEUTIC TARGET < 7.0 ACTION SUGGESTED > 7.0 ESTIMATED AVERAGE GLUCOSE 94 mg/dL TB 02/21/2025 2:15 PM EDT 02/21/2025 2:18 PM EDT Narrative CLINISYNC - 02/21/2025 2:44 PM EDT Dezalexandra Hensleyo DO CLINISYNC Final Result Performing Organization Address [facility] Co de Phone Number [facility] * ALL THYROXINE (T4) FREE (02/21/2025 2:15 PM EDT) FREE T4 1.09 0.76 - 1.46 ng/dL TB 02/21/2025 2:15 PM EDT 02/21/2025 2:18 PM EDT Narrative CLINISYNC - 02/21/2025 3:26 PM EDT Dezalexandra Hensleyo DO CLINISYNC Final Result Performing Organization Address [facility] Co de Phone Number [facility] * ALL THYROID STIM HORMONE (02/21/2025 2:15 PM EDT) THYROID STIMULATING HORMONE 1.954 0.358 - 3.740 uIU/mL TBH 02/21/2025 2:15 PM EDT 02/21/2025 2:18 PM EDT Narrative CLINISYNC - 02/21/2025 2:51 PM EDT Dez Monse DO CLINISYNC Final Result Performing Organization Address [facility] Co de Phone Number [facility] * ALL LUTEINIZING HORMONE (02/21/2025 2:15 PM EDT) LUTEINIZING HORMONE(LH) 6.8 . mIU/mL TBH Comment: Adult Female Range Follicular phase 2.4 - 12.6 Ovulation phase 14.0 - 95.6 Luteal phase 1.0 - 11.4 Postmenopausal 7.7 - 58.5 02/21/2025 2:15 PM EDT 02/21/2025 2:18 PM EDT Narrative CLINISYNC - 02/22/2025 4:07 AM EDT [facility] Monse DO CLINISYNC Final Result Performing Organization Address [facility] Phone Number [facility] * ALL FOLLICLE STIMULATING HORMONE (02/21/2025 2:15 PM EDT) Pathologist [facility] FSH 6.8 . mIU/mL TBH Comment: Adult Female Range Follicular phase 3.5 - 12.5 Ovulation phase 4.7 - 21.5 Luteal phase 1.7 - 7.7 Postmenopausal 25.8 - 134.8 Performed at: [address] [id number] Tv News Director: Bradford Acosta PhD, Phone: [phone] 02/21/2025 2:15 PM EDT 02/21/2025 2:18 PM EDT Narrative CLINISYNC - 02/22/2025 4:07 AM EDT [facility] Monse DO CLINISYNC Final Result Performing Organization Address [facility] Co de Phone Number [facility] * (ABNORMAL) ALL DHEA SULFATE (02/21/2025 2:15 PM EDT) DHEA-SULFATE 443.0(A) 84.8 - 378.0 ug/dL TBH 02/21/2025 2:15 PM EDT 02/21/2025 2:18 PM EDT Narrative CLINISYNC - 02/22/2025 4:07 AM EDT Dezalexandra Hensleyo DO CLINISYNC Final Result [facility] * ALL DEHYDROEPIANDROSTERONE (02/21/2025 2:15 PM EDT) Pathologist [facility] DHEA, SERUM 609 31 - 701 ng/dL TBH Comment: This test was developed and its performance characteristics determined by [facility]. It has not been cleared or approved by the Food and Drug Administration. Performed at: [address] [id number] Tv News Director: Kimberly Santiago MD, Phone: [phone] 02/21/2025 2:15 PM EDT 02/21/2025 2:18 PM EDT Narrative CLINISYNC - 03/01/2025 5:08 AM EDT Dezalexandra Hensleyo DO CLINISYNC Final Result Performing Organization Address [facility]/ZIP Co de Phone Number [facility] * (ABNORMAL) ALL CBC WITH AUTO DIFF (02/21/2025 2:15 PM EDT) Pathologist [facility] TB WBC 7.4 4.0 - 11.0 10 3/uL TBH TBH RBC 4.06(L) 4.20 - 5.40 10 6/uL TBH TBH HGB 12.1 12.0 - 16.0 g/dL TBH TBH HCT 32.6(L) 36.0 - 48.0 % TBH TBH MCV 80.3(L) 81.0 - 99.0 fL TBH TBH MCH 29.8 26.7 - 34.0 pg TBH TBH MCHC 37.1(H) 29.9 - 35.2 g/dL TBH TBH RDW 13.2 11.0 - 15.0 % TBH TBH PLT 203 150 - 450 10 3/uL TBH TBH MPV 11.9 9.5 - 13.5 fL TBH NEUTROPHILS PERCENT AUTO 71.3 43.0 - 75.0 % TBH LYMPHOCYTES PERCENT AUTO 19.7(L) 20.5 - 60.0 % TBH MONOCYTES PERCENT AUTO 7.2 1.7 - 12.0 % TBH TBH EO % 1.2 0.9 - 7.0 % TBH BASOPHILS PERCENT AUTO 0.5 0.2 - 2.0 % TBH IMMATURE GRANULOCYTES PCT AUTO 0.1 0.0 - 0.5 % TBH NEUTROPHILS ABSOLUTE AUTO 5.3 1.4 - 6.5 10 3/uL TBH LYMPHOCYTES ABSOLUTE AUTO 1.5 1.2 - 3.8 10 3/uL TBH MONOCYTES ABSOLUTE AUTO 0.5 0.3 - 0.8 10 3/uL TBH TBH EO # 0.1 0.0 - 0.7 10 3/uL TBH BASOPHILS ABSOLUTE AUTO 0.0 0.0 - 0.1 10 3/uL TBH IMMATURE GRANULOCYTES ABS AUTO 0.01 0.00 - 0.03 10 3/uL TBH 02/21/2025 2:15 PM EDT 02/21/2025 2:18 PM EDT Narrative CLINISYNC - 02/21/2025 2:28 PM EDT Dez Shea DO CLINISYNC Final Result BETO TB * IGP,APTIMA HPV,AGE GDLN (02/14/2025 8:24 AM EDT) AGE GDLN ACOG TESTING Note . [facility] Comment: TESTS RESULT FLAG UNITS REF RANGE LAB Clinician Provided Cytology Information Source.............Cervix;Endocervix No. of containers..01 ThinPrep Vial Age Algo ACOG Susie... 21-29 FLAG LEGEND: L-Low Normal,H-High Normal,LL-Alert Low,HH-Alert High <-Panic Low,>-Panic High,A-Abnormal,AA-Critical Abnormal Performed at: 01 =G [facility] [place] [address] Antoinette Gunter MD, IGP, RFX APTIMA HPV ASCU Note . [facility] Comment: TESTS RESULT FLAG UNITS REF RANGE LAB DIAGNOSIS: 02 NEGATIVE FOR INTRAEPITHELIAL LESION OR MALIGNANCY. Specimen adequacy: 02 Satisfactory for evaluation. No endocervical component is identified. Performed by: Annabelle Chapin, Resource Teacher ([facility]) . 02 Note: Note 02 The Pap [...] Low,>-Panic High,A-Abnormal,AA-Critical Abnormal Performed at: [address] [address] Antoinette Gunter MD, Performed at: = - [facility] [id number] Tv News Director: Antoinette Gunter MD, Phone: [phone] Performed at: [facility] [address] [id number] Tv News Director: Antoinette Gunter MD, Phone: [phone] 02/14/2025 8:24 AM EDT 02/14/2025 12:49 PM EDT Narrative CLINISYNC - 02/16/2025 11:07 PM EDT BRUSH-SPATULA CERVIX ENDOCERVIX Dez Monse DO LAB BLOOD ORDERABLES Final Resul t Performing Organization Address [facility] Co de Phone Number CLINISYNC TBH * Pap Smear (02/14/2025 12:00 AM EDT) Swab Cervical swab / Unknown Dez Monse DO LAB CYTOLOGY ORDERABLES Final Re sult Performing Organization Address [facility]/ZIP Co de Phone Number EXTERNAL LAB from Last 3 Months Insurance
--- OUTSIDE RECORDS SUMMARY | 2025-04-02 08:01 | XMS_ITS | Encounter Summary ---
Author Organization [facility] Address [id number] [address] [place] [address] Care Team Providers Care Semiconductor Dies Loader Name Role Phone Services, [facility] Primary Care Provider Reason for Visit * Reason Comments Med Change Request Encounter Details Date Type Department Care Team ([facility] Contact Info) Description 01/25/2024 Refill [facility] Ob[facility]necology [address] [place] [address] Kenya Vasquez MD [address] [facility] 02/23/2024 [place] [address] Social History Tobacco Use Types Packs/Day Years [...] on filedocumented in this encounter Care Teams Semiconductor Dies Loader Relationship Specialty Start Date End Date Services, [facility] [address] [facility] [place], [place] PCP - General Family Medicine 04/25/18 documented as of this encounter
--- OUTSIDE RECORDS SUMMARY | 2025-04-02 08:01 | XMS_ITS | Clinical Summary ---
Author Organization [facility] Address [address] [place], [place] [address] Care Team Providers Care Deputy Juvenile Officer Name Role Phone Dez Shea DO Unavailable [phone] Allergies No known active allergies Medications [...] (01/31/2017): Added automatically from request for surgery [id number] Family History Medical History Relation Comments no [...] 3-dose series) 01/11 Cervical Cancer Screening 2019 HPV Vaccine (1 - 3-dose SCDM series) 2025 Influenza Vaccine (#1) 2025 Insurance BLUE CARD PPO OOS Member Subscriber Plan / Payer (Ef fective 2011-Present) Name:Karlee Agudelo Relation to Subscriber:Child Name:AGUDELOZEYNEP Date of :1977 (Home) Address: [address] [place] [address] Payer ID:[id number] (NAIC) Type:PPO Address: [facility] [id number] [employer] [place] Care Teams Deputy Juvenile Officer Relationship Specialty Start Date End Date Dez Shea DO Referring Obstetrics 01/19/17
--- OUTSIDE RECORDS SUMMARY | 2025-04-02 08:01 | XMS_ITS | Encounter Summary ---
Author Organization [facility] Address [address] [place] [address] Care Team Providers Care Bridge Ironworker Name Role Phone Unavailable Primary Care Provider Unavailabl e Encounter Details Date Type Department Care Team (Late Contact Info) Description 02/26/2025 Orders Only [facility] [address] [place] [phone] [place], [place] [address] [place] [address] Social History Tobacco Use Types Packs/Day Years Used Date Smoking Tobacco: Never Assessed Comments No Sex and Gender Information Value Date Recorded Sex Assigned at Not on file Legal Sex Female 7:03 PM EDT Gender Identity Not on file Sexual Orientation Not on file documented as of this encounter Plan of Treatment Upcoming Encounters Date Type Department Care Team (Late Contact Info) Description 04/23/2025 11:10 AM EDT Office Visit [facility]DERS [address] [place] [address] Dez Shea DO [address] [place], [place] [address] documented as of this encounter Procedures Procedure Name Priority Date/Time Associated Diagnosis Comments PAP SMEAR Routine 02/14/2025 12:00 AM EDT documented in this encounter Results * Pap Smear (02/14/2025 12:00 AM EDT) Swab Cervical swab / Unknown us Dez Shea DO LAB CYTOLOGY ORDERABLES Final Re sult EXTERNAL LAB documented in this encounter Visit Diagnoses Not on filedocumented in this encounter
--- OUTSIDE RECORDS SUMMARY | 2025-04-02 08:01 | XMS_ITS | Clinical Summary ---
Author Organization [facility] [facility] Address [id number] [address] [place] [address] Care Team Providers Care Inspector Optical Instrument Name Role Phone Services, [facility] Primary Care Provider Allergies No [...] Date Last Done Comments Depression Screening 2010 Adult BMI Screening 08/15/2024 08/15/2023 Tobacco Screening 02/15/2025 02/16/2024 COVID-19 Vaccine (2024-08 6 season) 2025 01/17/2021, 12/27/2020 Influenza Vaccine 03/11/2025 07/25/2023, 07/20/2022 Pap Smear [...] Narrative COPATH - 10/11/2023 9:21 AM EDT [facility] [address] [place] [address] Gynecologic Cytology Consultation Patient Name:KARLEE LUIS:2000 (Age: 23)Gender:FTaken:4Reported:10/11/2023hysician(s):Kenya Vasquez M.D. ([phone])Copy To: Rec. #:[id number]: #[id number] Final Cytologic Interpretation ThinPrep Pap Test (Vaginal/Cervical): Satisfactory for evaluation. A transformation zone component is present. NEGATIVE FOR INTRAEPITHELIAL LESION OR MALIGNANCY. jja/10/11/2023 Interpretation performed at [facility], [address] [place] [address], License number: [id number]. Electronically Signed Out By AYAKA Eugene(ASCP) Date of Last Menstrual Period: 09/18/23 Other Clinical Conditions: Z01.419 Slip Cover Maker exam wo/abn findings Source of Specimen ThinPrep Pap Test (Vaginal/Cervical) Thin Prep Pap (VALET PARKING ATTENDANT) Fee Code(s): G0145 Kenya Vasquez MD PATHOLOGY/CYTOLOGY ORDERABLES Fi nal Result COPATH from Last 3 Months or Most Recently Relevant to Health Maintenance Insurance [employer] Care Teams Inspector Optical Instrument Relationship Specialty Start Date End Date [facility], [facility] [address] [place], [place] PCP - General Family Medicine 04/25/18
[2025-04-03 08:09] LABS: AFP, Serum, Tumor Marker <1.8 ng/mL (0.0-4.7); CEA 0.9 ng/mL (0.0-4.7)
[2025-04-07 12:08] LABS: DHEA, Serum 296 ng/dL (31-701)
== END 2025-04-02 07:58 | disposition home or self-care (01) ==
LOC: LAB 07:59
PROVIDERS: Visit Provider Obstetrics & Gynecology
DX: E28.2 Polycystic ovarian syndrome (principal)
CPT/HCPCS: 36415; 82105; 82378; 82626; 83615; 83625; 84702; 86304

== ENCOUNTER 2025-04-30 14:25 | Outpatient (OUT) | payer BC, SELFPAY | END 2025-04-30 14:26 | disposition home or self-care (01) | LOC: LAB 14:26 | PROVIDERS: Visit Provider Obstetrics & Gynecology | DX: N97.0 Female infertility associated with anovulation (principal) | CPT/HCPCS: 36415; 84144 ==

== ENCOUNTER 2025-06-07 15:53 | Outpatient (OUT) | payer BC, SELFPAY ==
--- OUTSIDE RECORDS SUMMARY | 2025-06-07 15:57 | XMS_ITS | Clinical Summary ---
Author Organization [facility] Address [address] [place], [place] [address] Care Team Providers Care Lay Ups Assembler Name Role Phone Dez Shea DO Unavailable [phone] Allergies No known active allergies Medications MedicationSigDispense QuantityRefillsLast FilledStart DateEnd DateStatus docusate sodium (COLACE) 100 mg capsule Take 1 capsule by mouth twice daily. 30 capsule 02/13/2017Active oxyCODONE-acetaminophen (PERCOCET) 5-325 mg tablet Take 2 tablets by mouth every 4 hours as needed. 30 tablet 02/13/2017Active acetaminophen-codeine (TYLENOL-COD #3) 300-30 mg per tablet Take 1 tablet by mouth every 6 hours as needed. FOR AGHN320Active Active Problems ProblemNoted DateDiagnosed DateEndometrioma of ovary02/10/2017 Resolved Problems ProblemNoted DateDiagnosed DateResolved DatePelvic mass Overview (01/31/2017): Added automatically from request for surgery [id number] Family History Medical HistoryRelationCommentsno cancer in familyOtherRelationStatusComments Other Social History Tobacco UseTypesPacks/DayYears UsedDateSmoking Tobacco: NeverSmokeless Tobacco: NeverAlcohol UseStandard Drinks/WeekCommentsNo0 (1 standard drink = 0.6 oz pure alcohol)CommentsNoSex and Gender InformationValueDate RecordedSex Assigned at BirthNot on fileLegal IocFovadn22/12/2017 10:21 AM EDTGender IdentityNot on fileSexual OrientationNot on file Last Filed Vital Signs Vital SignReadingTime TakenCommentsBlood Moozmqrk934/68002/22/2017 2:09 PM EDT Eaiob468302/22/2017 2:09 PM EQEPzrnommfqnw40.1 ??C (98.8 ??F)02/22/2017 2:09 PM EDTRespiratory Nmyp835902/13/2017 8:18 AM EDTOxygen Tuocslliln42%02/13/2017 8:18 AM EDTInhaled Oxygen Concentration--Kfcxxs65.9 kg (151 lb 12.8 oz)02/22/2017 2:09 PM RPXCjtgou777 cm (5' 2.99 )02/22/2017 2:09 PM EDTBody Mass Index26.9 02/22/2017 2:09 PM EDT Plan of Treatment Health MaintenanceDue DateLast DoneCommentsAnxiety Raaddqokf50/04/2016Depression Fnxbjnwxi87/04/2016HIV Zlvwwttma85/04/2016Hepatitis C Sczxaltei65/04/2016 DTaP,Tdap,Td Vaccine (1 - Tdap)2017Hepatitis B Vaccine (1 of 3 - 19+ 3- dose series)2017Cervical Cancer Blpqkszby92/04/2019HPV Vaccine (1 - 3-dose SCDM series)5Covid-19 Vaccine ( - 2024- season)2025Influenza Vaccine (#1)2025 Insurance Care Teams Team MemberRelationshipSpecialtyStart DateEnd Date Dez Shea DO ReferringObstetrics01/19/17
--- OUTSIDE RECORDS SUMMARY | 2025-06-07 15:57 | XMS_ITS | Clinical Summary ---
Author Organization [facility] Address [facility] [address] [place] [address] Care Team Providers Care Engineering Intern Name Role Phone Services, [facility] Primary Care Provider Allergies No known active allergies Medications MedicationSigDispense QuantityRefillsLast FilledStart DateEnd DateStatus letrozole (FEMARA) 2.5 mg chemo tablet Indications:AnovulationTake 2 tablets by mouth daily Take on cycle days 3-7 5 tablet 02/06/2024ctive Active Problems No known active problems Social History Tobacco UseTypesPacks/DayYears UsedDateSmoking Tobacco: Every Day Vaping/E-cigarettesSmokeless Tobacco: Never Tobacco Cessation:Ready to Q uit: Not Asked; Counseling Given: Not Answered Alcohol UseStandard Drinks/WeekCommentsYes3 (1 standard drink = 0.6 oz pure alcohol)once a weekAUDIT-CAnswerDate RecordedQ1: How often do you have a drink containing alcohol?Never09/22/2020verage Number of DrinksNot on file09/22/2020 Frequency of Binge DrinkingNot on file09/22/2020hildcareAnswerDate Recorded OnatveksbBlyhowl97/12/2019EmploymentAnswerDate RecordedEmploymentUnknown 12/20/2018Hunger ScreeningAnswerDate RecordedWithin the past 12 months we worried whether our food would run out before we got money to buy more.Never True08/15/2023Within the past 12 months the food we bought just didn't last and we didn't have money to get more.Never True08/15/2023urpose - LifeAnswerDate RecordedPurpose and direction in cktyDtcjbtm41/11/2021CommentsNoSex and Gender InformationValueDate RecordedSex Assigned at LoyeyOrmlnp38/16/2024 4:39 AM ESTLegal JdyKmgtts66/06/2015 12:01 PM EDTGender AkmltcrtMwojoj17/16/2024 4:39 AM ESTSexual QyngnexepfrJtpzmqpm95/16/2024 4:39 AM EST Last Filed Vital Signs Vital SignReadingTime TakenCommentsBlood Auhfyqrt359/7409/26/2023 10:46 AM EDT Btqwb199708/15/2023 1:09 PM TMHEpzaybujoxp86.7 ??C (98 ??F)07/14/2022 6:44 PM EST Respiratory Cwpp277807/14/2022 6:44 PM ESTOxygen Hdspqrqhnz577%07/14/2022 6:44 PM ESTInhaled Oxygen Concentration--Mftbag66.9 kg (200 lb 6.4 oz)08/15/2023 1:09 PM PTSGnotth835 cm (5' 2.99 )08/15/2023 1:09 PM ESTBody Mass Index35.51008/15/2023 1:09 PM EST Plan of Treatment Health MaintenanceDue DateLast DoneCommentsDepression Tnsjjwoec95/04/2010dult BMI Xvjgqjdlf35/11/2023Tobacco Gqrqcplcs83/08//OVID-19 Vaccine ( season)507/04/2021, 12/27/2020Influenza Vaccine 501/, 3Pap Smear/TaP,Tdap and Td Vaccines (8 - Td or Tdap)/, 12/02/2010, 11/19/2002, Additional history exists Medical Devices Not on file Procedures Procedure NamePriorityDate/TimeAssociated DiagnosisCommentsPAP SMEARRoutine 09/26/2023 6:35 AM EDT Well woman exam with routine gynecological exam from Last 3 Months or Most Recently Relevant to Health Maintenance Results * Pap Smear (09/26/2023 6:35 AM EDT)Specimen (Source)Anatomical Location / LateralityCollection Method / VolumeCollection TimeReceived Time09/26/2023 6:35 AM EDT09/26/2023 6:35 AM EDT Narrative COPATH - 10/11/2023 9:21 AM EDT ? [facility] ? [address] [place] [address] ? [place] [address] ? Gynecologic Cytology Consultation ? Patient Name:KARLEE LUIS:2000 (Age: 23)Gender:FTaken:4Reported:10/11/2023hysician(s):Kenya Vasquez M.D. ([phone])Copy To: Rec. #:[id number]: #[id number] Final Cytologic Interpretation ThinPrep Pap Test (Vaginal/Cervical): Satisfactory for evaluation. A transformation zone component is present. NEGATIVE FOR INTRAEPITHELIAL LESION OR MALIGNANCY. 10/11/2023 [place] [address], License number: [id number]. Electronically Signed Out By ?AYAKA Eugene(ASCP) Date of Last Menstrual Period: ? 09/18/23 Other Clinical Conditions: Z01.419 Reserve Officer exam wo/abn findings Source of Specimen ??ThinPrep Pap Test (Vaginal/Cervical) ? Thin Prep Pap (BUS DRIVER/MONITOR) Fee Code(s): ?? G0145 Authorizing ProviderResult TypeResult StatusRosty Vasquez MDPATHOLOGY/CYTOLOGY ORDERABLESFinal ResultPerforming OrganizationAddressCity/State/ZIP CodePhone Number COPATH from Last 3 Months or Most Recently Relevant to Health Maintenance Insurance * Guarantor: Karlee Luis TypeRelation to PatientDate of BirthPhoneBilling AddressPersonal/KbjbcmQomk2000 [facility] [place] [address] Care Teams Team MemberRelationshipSpecialtyStart DateEnd Date Services, [facility] [address] [place], [place] PCP - GeneralFamily Oastbzay70/16/18
--- OUTSIDE RECORDS SUMMARY | 2025-06-07 15:57 | XMS_ITS | Clinical Summary ---
Author Organization [facility] Address [address] [place] [address] Care Team Providers Care Insurance Administrative Assistant Name Role Phone Unavailable Primary Care Provider Unavailabl e Allergies No known active allergies Medications MedicationSigDispense QuantityRefillsLast FilledStart DateEnd DateStatus metFORMIN XR (Glucophage-XR) 500 MG 24 hr tablet Indications:PCOS (polycystic ovarian syndrome)Take 1 tablet (500 mg) by mouth in the evening. Take with meals Do not crush, chew, or split. 90 tablet 5Active letrozole (Femara) 2.5 MG chemo tablet Indications:Female infertilityTake 1 tablet (2.5 mg total) by mouth Daily for 5 days. 5 tablet Expired Encounters DateTypeDepartmentCare UeteNuthpccsqhj01/10/2025Telephone [facility] SAUNDERS [address] [place] [address] Mariana Kyle MA 04/30/2025linisync Result Encounter [facility] External Department Unsolicited Dez Shea DO 04/23/2025 11:10 AM EDTOffice Visit NOMChristine SAUNDERS [address] [place] [address] Dez Shea DO Complex ovarian cyst; Female infertility; Rubswrrjqgn89/14/2025Bamboo flowsheet [facility] RODN [address] [facility] [place] [address] Dez Shea, 04/22/20257486Lxynwn13/23/2025linisync Result Encounter [facility] External Department Unsolicited Dez Shea DO 03/12/2025Telephone [facility] RODN [address] [facility] [place] [address] Mariana Kyle MA from Last 3 Months Social History Tobacco UseTypesPacks/DayYears UsedDateSmoking Tobacco: Never Assessed CommentsNoSex and Gender InformationValueDate RecordedSex Assigned at BirthNot on fileLegal IeaTwkssf14/15/2023 7:03 PM EDTGender IdentityNot on fileSexual OrientationNot on file Last Filed Vital Signs Vital SignReadingTime TakenCommentsBlood Ecythwti061/7004/23/2025 11:19 AM EDT Pulse--Temperature--Respiratory Rate--Oxygen Saturation--Inhaled Oxygen Concentration--Ejcrzy34 kg (183 lb)04/23/2025 11:19 AM VPKDaqrrk190 cm (5' 3 ) 02/14/2025 8:31 AM EDTBody Mass Index32.42002/14/2025 8:31 AM EDT Plan of Treatment DateTypeDepartmentCare Team (Latest Contact Info)Jxbokaccwap75/16/2026 9:50 AM EDTOffice Visit [facility] SAUNDERS [address] [facility] [place] [address] Dez Shea, DO [address] [facility] [address] [place], [place] [id number] Procedures Procedure NamePriorityDate/TimeAssociated DiagnosisCommentsALL PROGESTERONE Tbwedjr9104/30/2025 2:39 PM EDT ALL ZLITYVNCNUSKLYBQUYNUXIRjvvlcr79/23/2025 8:12 AM EDT ALL ATIHwvcvok90/23/2025 8:12 AM EDT ALL MISCELLANEOUS WWXRWmkstsu96/23/2025 8:12 AM EDT [facility] HCG,BETA-QUANT,TUMOR PDMWCGRpylayg68/23/2025 8:12 AM EDT ALL [place] 827Wblyhjm52/23/2025 8:12 AM EDT ELCH AFP TUMOR WLNONLMlczxoh73/23/2025 8:12 AM EDT from Last 3 Months Results * ALL PROGESTERONE (04/30/2025 2:39 PM EDT)ComponentValueRef RangeTest Method Analysis TimePerformed AtPathologist SignaturePROGESTERONE0.8. ng/mLTBH Comment: ? Follicular phase ? 0.1 - ?? 0.9 ? Luteal phase ? 1.8 - ??23.9 ? Ovulation phase ?0.1 - ??12.0 ?First trimester ?11.0 - ??44.3 ?Second trimester ?? 25.4 - ??83.3 ?Third trimester ?58.7 - 214.0 ? Postmenopausal ? 0.0 - ?? 0.1 Performed at: ??CB - [facility] [address] [place], [place] ??[id number] Residential Treatment Counselor: Bradford Acosta PhD, Phone: ??[phone] Specimen (Source)Anatomical Location / LateralityCollection Method / Volume Collection TimeReceived Time04/30/2025 2:39 PM EDT1 2:53 PM EDT Narrative CLINISYNC - 05/01/2025 4:08 AM EDT Authorizing ProviderResult TypeResult StatusCorey Monse DOCLINISYNCFinal Result Performing OrganizationAddTor[facility] CampusPhone Number [facility] * ELCH AFP TUMOR MARKER (04/02/2025 8:12 AM EDT)ComponentValueRef RangeTest MethodAnalysis TimePerformed AtPathologist SignatureAFP, SERUM, TUMOR MARKER <1.80.0 - 4.7 ng/mLTBHComment: [facility] Electrochemiluminescence Immunoassay (ECLIA) Values obtained with different assay methods or kits cannot be used interchangeably. ??Results cannot be interpreted as absolute evidence of the presence or absence of malignant disease. This test is not interpretable in females. Specimen (Source)Anatomical Location / LateralityCollection Method / Volume Collection TimeReceived Time04/02/2025 8:12 AM EDT04/02/2025 8:29 AM EDT Narrative CLINISYNC - 04/03/2025 8:09 AM EDT Authorizing ProviderResult TypeResult StatusCorey Monse DOCLINISYNCFinal Result Performing OrganizationAdd[facility] CodePhone Number [facility] * [facility] HCG,BETA-QUANT,TUMOR MARKER (04/02/2025 8:12 AM EDT)ComponentValueRef Range Test MethodAnalysis TimePerformed AtPathologist SignatureHCG TUMOR MARKER<1. mIU/mLTBHComment: ? Female (Non-) ?0 - ? 5 ?(Postmenopausal) ??0 - ? 8 [facility] Electrochemiluminescence Immunoassay (ECLIA) The [employer] HCG + beta assay recognizes the holo-hormone, human chorionic gonadotropin (hCG), nicked forms of hCG, the beta-core fragment and the free beta-subunit in human serum and plasma. Results obtained with different test methods or kits cannot used interchangeably. This assay is intended for the early detection of . The result should not be used for treatment or for diagnostic purposes without confirmation of the diagnosis by another medically established diagnostic product or procedure. This test was developed and its performance characteristics determined by [facility]. It has not been cleared or approved by the Food and Drug Administration for use as a tumor marker. This test is not interpretable as a tumor marker in females. Performed at: ??[facility] - [facility] ??[id number] Residential Treatment Counselor: Bradford Acosta PhD, Phone: ??[phone] Specimen (Source)Anatomical Location / LateralityCollection Method / Volume Collection TimeReceived Time04/02/2025 8:12 AM EDT04/02/2025 8:29 AM EDT Narrative CLINISYNC - 04/03/2025 8:09 AM EDT Authorizing ProviderResult TypeResult StatusCorey Monse DOCLINISYNCFinal Result Performing OrganizationAddressCity/State/ZIP CodePhone Number CLINISYNC TB * ALL MISCELLANEOUS TEST (04/02/2025 8:12 AM EDT)ComponentValueRef RangeTest MethodAnalysis TimePerformed AtPathologist SignatureMISCELLANEOUS TESTCOMMENT. TBHComment: Test Ordered: [id number] LD Isoenzymes LDH ?163 ?IU/L ? CB ?? Reference Range: 119-226 (LD) Fraction 1 ?20 ? % ?BN ?? Reference Range: 17-32 (LD) Fraction 2 ?31 ? % ?BN ?? Reference Range: 25-40 (LD) Fraction 3 ?28 ?[H ] % ?BN ?? Reference Range: 17-27 (LD) Fraction 4 ?12 ? % ?BN ?? Reference Range: 5-13 (LD) Fraction 5 ?9 ?% ?BN ?? Reference Range: 4-20 Performed at: ?? - [address] ??[id number] Residential Treatment Counselor: Bradford Acosta PhD, Phone: ??[phone] Performed at: ?? - [address] ??[id number] Residential Treatment Counselor: Kimberly Santiago MD, Phone: ??[phone] Specimen (Source)Anatomical Location / LateralityCollection Method / Volume Collection TimeReceived Time04/02/2025 8:12 AM EDT04/02/2025 11:01 AM EDT Narrative CLINISYNC - 04/05/2025 5:10 AM EDT [id number] Lactate Dehydrogenase (LD) Isoenzymes Authorizing ProviderResult TypeResult StatusCorey Monse DOCLINISYNCFinal Result Performing OrganizationAddressCity/State/[facility] CodePhone Number [facility] * ALL DEHYDROEPIANDROSTERONE (04/02/2025 8:12 AM EDT)ComponentValueRef RangeTest MethodAnalysis TimePerformed AtPathologist SignatureDHEA, [id number] - 701 ng/dLTBHComment: This test was developed and its performance characteristics determined by [facility]. It has not been cleared or approved by the Food and Drug Administration. Performed at: ??[address] ??[id number] Residential Treatment Counselor: Kimberly Santiago MD, Phone: ??[phone] Specimen (Source)Anatomical Location / LateralityCollection Method / Volume Collection TimeReceived Time04/02/2025 8:12 AM EDT04/02/2025 8:29 AM EDT Narrative CLINISYNC - 04/07/2025 12:08 PM EDT Authorizing ProviderResult TypeResult StatusCorey Monse DOCLINISYNCFinal Result Performing OrganizationAddressCity/State/ZIP CodePhone Number [facility] * ALL CEA (04/02/2025 8:12 AM EDT)ComponentValueRef RangeTest MethodAnalysis TimePerformed AtPathologist SignatureCEA0.90.0 - 4.7 ng/mLTBHComment: Nonsmokers <3.9 Smokers <5.6 [facility] Electrochemiluminescence Immunoassay (ECLIA) Values obtained with different assay methods or kits cannot be used interchangeably. ??Results cannot be interpreted as absolute evidence of the presence or absence of malignant disease. Performed at: ?? - [facility] ??[id number] Residential Treatment Counselor: Bradford Acosta PhD, Phone: ??[phone] Specimen (Source)Anatomical Location / LateralityCollection Method / Volume Collection TimeReceived Time04/02/2025 8:12 AM EDT04/02/2025 8:29 AM EDT Narrative CLINISYNC - 04/07/2025 12:08 PM EDT Authorizing ProviderResult TypeResult StatusCorey Monse DOCLINISYNCFinal Result Performing OrganizationAddressty/State/ZIP CodePhone Number [facility] * ALL [place] 125 (04/02/2025 8:12 AM EDT)ComponentValueRef RangeTest MethodAnalysis TimePerformed AtPathologist SignatureCANCER ANTIGEN ([place]) 80790.60.0 - 38.1 U/mLTBHComment: [facility] Electrochemiluminescence Immunoassay (ECLIA) Values obtained with different assay methods or kits cannot be used interchangeably. ??Results cannot be interpreted as absolute evidence of the presence or absence of malignant disease. Specimen (Source)Anatomical Location / LateralityCollection Method / Volume Collection TimeReceived Time04/02/2025 8:12 AM EDT04/02/2025 8:29 AM EDT Narrative CLINISYNC - 04/03/2025 8:09 AM EDT Authorizing ProviderResult TypeResult StatusCorey Monse DOCLINISYNCFinal Result Performing OrganizationAddressCity/State/ZIP CodePhone Number CLINISYNC [facility] from Last 3 Months Insurance
== END 2025-06-07 15:54 | disposition home or self-care (01) ==
LOC: LAB 15:54
PROVIDERS: Visit Provider Obstetrics & Gynecology
DX: N97.0 Female infertility associated with anovulation (principal)
CPT/HCPCS: 36415; 84144